=== PATIENT | male | born 1940 | race Caucasian/White ===

== ENCOUNTER 2017-03-10 19:03 | Inpatient (IN) | payer OTHER ==
[~2017-03-10] VITALS: Ht 170.2 cm; Wt 79.5 kg
[~2017-03-10 19:03] MED LIST: ASPEC81 PO; BRL90 PO; CETI10TA10 PO; IMDSR30 PO; LISI-461 PO; MAGN250T3 PO; NITR0.4S UT; OMEG10007 PO; TRMCR130WC TOP; XLTOPS OPB
[2017-03-10] MEDS ORDERED: ONDANSETRON INJ 2 MG/ML 2 ML VIAL IV STA (19:19)
[2017-03-10] MEDS ORDERED: SODIUM CHLORIDE 0.9% 1000ML 500 ML IV STA (19:19)
--- NOTE | 2017-03-10 19:27 | EMERGENCY ROOM VISIT NOTE ---
History Report prepared by Pia: Nithin Fountain Under the Supervision of: Dr. Kofi Raya M.D. First contact with patient: 19:11 Chief Complaint: ABDOMINAL PAIN Stated Complaint: MID ABDOMINAL PAIN History of Present Illness The patient is a 76 year old male who presents to the Emergency Room with complaints of constant abdominal pain that started out as waxing and waning a few hours ago. He currently rates his discomfort as an 8/10 in severity. He states that he ate some soup a couple of hours before the pain started. The patient is additionally complaining of back pain in the middle of his back, increased urinary frequency, and belching. The patient denies any pain with urination, testicular pain, nausea, vomiting, fevers, chills, or diarrhea. The patient states that he had a colon resection five years ago due to diverticulitis, and he has five stents in his heart. The patient denies any history of kidney stones or urine infections. He states that he takes Brilinta for his stents, and he states that he took tums with no relief. Source of History: patient Onset: a few hours ago Position: abdomen Symptom Intensity: 8/10 Timing: constant Associated Symptoms: + back pain, + urinary symptoms, No fevers, No chills, No nausea, No vomiting Note: Associated symptoms: belching Review of Systems See HPI for pertinent positives & negatives. A total of 10 systems reviewed and were otherwise negative. Past Medical & Surgical Medical Problems: (1) Hyperlipidemia Nec/Nos (2) Hypertension Nos Social History Smoking Status: Former Smoker Drug Use: none Housing Status: unknown Occupation Status: retired Current/Historical Medications Scheduled Aspirin Enteric Coated (Ecotrin Or Generic *), 81 MG PO QPM Atorvastatin (Lipitor), 1 TAB PO DAILY Cetirizine Hcl (Zyrtec), 10 MG PO BID Latanoprost (Latanoprost), 1 DROP OPB HS Lisinopril (Zestril), 10 MG PO QPM Magnesium (Magnesium 250 mg), 1 TAB PO QAM Nitroglycerin (Nitrostat), 0.4 MG UT PRN Ticagrelor (Brilinta), 90 MG PO BID Allergies Coded Allergies: POLLEN (Verified Allergy, Intermediate, "TREE POLLEN": ITCHY EYES, CONGESTION, 03/10/17) Physical Exam Vital Signs Date Time Temp Pulse Resp B/P (MAP) Pulse Ox O2 Delivery O2 Flow Rate FiO2 03/10/17 22:02 58 16 124/73 94 Room Air 03/10/17 19:52 61 03/10/17 19:04 36.5 62 16 152/97 96 Room Air Physical Exam GENERAL: Patient is in no acute distress. HEENT: No acute trauma, normocephalic atraumatic, mucous membranes moist, no nasal congestion, no scleral icterus. NECK: No stridor, no adenopathy, no meningismus, trachea is midline. LUNGS: Clear to auscultation bilaterally, no wheeze, no rhonchi, breath sounds equal. HEART: Without murmurs gallops or rubs, regular rate and rhythm. ABDOMEN: Tender in the left mid abdomen, soft, bowel sounds positive, no hernias , no peritonitis. EXTREMITIES: No cyanosis or edema, full range of motion of all the joints without pain or difficulty, no signs for acute trauma. NEUROLOGIC: Oriented x 3, no acute motor or sensory deficits, no focal weakness. SKIN: No rash, no jaundice, no diaphoresis. Medical Decision & Procedures ER Provider Diagnostic Interpretation: Post-void bladder scan had 120cc, mild urinary retention Radiology results as stated below per my review and radiologist interpretation: CHEST ONE VIEW PORTABLE HISTORY: 76 years-old Male ABDOMINAL PAIN/GI acute generalized abdominal pain COMPARISON: Portable chest radiograph 05/05/2015 TECHNIQUE: Portable upright AP view of the chest FINDINGS: Cardiac silhouette is within normal limits. There is atherosclerosis of the aorta. Azygos lobe and fissure is noted. There is no pneumothorax, pleural effusion, focal airspace consolidation or overt pulmonary edema. Postsurgical changes of the right humeral head are noted. Calcification adjacent to the left greater tuberosity suggests calcific tendinosis or calcific bursitis. IMPRESSION: No acute cardiopulmonary process. The above report was generated using voice recognition software. It may contain grammatical, syntax or spelling errors. Electronically signed by: Teofilo Garcia M.D. 03/10/2017 8:18 PM Dictated Date/Time: 03/10/2017 8:16 PM ABD/PELVIS IV AND ORAL CONT HISTORY: 76 years-old Male ABDOMINAL PAIN/GI--?DIVERTICULITIS--GIVE PO AND IV CONTRAST acute generalized abdominal pain. Initial exam. COMPARISON: CT abdomen and pelvis 07/04/2011. TECHNIQUE: Multiple axial CT images of the abdomen and pelvis were obtained following the intravenous administration of 92 mL Optiray 320. Oral contrast was also used. A dose lowering technique was used consistent with the principals of MAGALYS. FINDINGS: There is mild bibasilar atelectasis and/or pleural parenchymal scarring, subsegmental. No pneumoperitoneum. The imaged inferior cardiac chambers are enlarged with coronary arterial calcifications. The liver, spleen, pancreas and adrenal glands are within normal limits. Gallbladder is also unremarkable. Kidneys and ureters are within normal limits. The prostate is enlarged causing mass effect upon the floor of the urinary bladder. Mild to moderate atherosclerotic plaquing of the abdominal aorta is present. No bulky retroperitoneal adenopathy. Small sliding type hiatal hernia is noted containing oral contrast. Stomach is distended. Duodenum is normal in caliber. The majority of the contrast is still present within the stomach. Colonic diverticulosis without diverticulitis. There is evidence of prior partial sigmoid colon resection. The appendix appears normal. Mildly dilated and prominent loops of small bowel are seen within the left mid abdomen with multiple nondilated fecalized loops of small bowel also noted distal to dilation extending into the terminal ileum. Collapsed nondilated loops of ileum are noted without a focal transition point seen. No significant progression of oral contrast is seen into the dilated small bowel loops. Several loops of bowel demonstrate angular margins suggesting underlying adhesions. Mild interloop edema is present within the mesentery. No pneumatosis or pneumoperitoneum. Soft tissues are within normal limits. Bones are intact. IMPRESSION: 1. Findings suggest low-grade partial small bowel obstruction, likely secondary to underlying adhesions with transition to normal caliber fecalized loops of small bowel within the right lower quadrant. These findings could be further evaluated with small bowel follow-through. 2. No pneumoperitoneum or pneumatosis. 3. Colonic diverticulosis without diverticulitis. Prior partial sigmoid colon resection. 4. Normal appendix. The above report was generated using voice recognition software. It may contain grammatical, syntax or spelling errors. Electronically signed by: Teofilo Garcia M.D. 03/10/2017 10:23 PM Dictated Date/Time: 03/10/2017 10:11 PM Laboratory Results 03/10/17 19:34 Red Blood Count 5.21, Mean Corpuscular Volume 89.1, Mean Corpuscular Hemoglobin 32.1, Mean Corpuscular Hemoglobin Concent 36.0, Mean Platelet Volume 9.7, Neutrophils (%) (Auto) 71.1, Lymphocytes (%) (Auto) 18.0, Monocytes (%) (Auto) 9.0, Eosinophils (%) (Auto) 1.0, Basophils (%) (Auto) 0.4, Neutrophils # (Auto) 5.50, Lymphocytes # (Auto) 1.39, Monocytes # (Auto) 0.70, Eosinophils # (Auto) 0.08, Basophils # (Auto) 0.03 03/10/17 19:34 Test 03/10/17 19:34 03/10/17 20:00 White Blood Count 7.74 K/uL (4.8-10.8) Red Blood Count 5.21 M/uL (4.7-6.1) Hemoglobin 16.7 g/dL (14.0-18.0) Hematocrit 46.4 % (42-52) Mean Corpuscular Volume 89.1 fL (80-100) Mean Corpuscular Hemoglobin 32.1 pg (25-34) Mean Corpuscular Hemoglobin Concent 36.0 g/dl (32-36) Platelet Count 157 K/uL (130-400) Mean Platelet Volume 9.7 fL (7.4-10.4) Neutrophils (%) (Auto) 71.1 % Lymphocytes (%) (Auto) 18.0 % Monocytes (%) (Auto) 9.0 % Eosinophils (%) (Auto) 1.0 % Basophils (%) (Auto) 0.4 % Neutrophils # (Auto) 5.50 K/uL (1.4-6.5) Lymphocytes # (Auto) 1.39 K/uL (1.2-3.4) Monocytes # (Auto) 0.70 K/uL (0.11-0.59) Eosinophils # (Auto) 0.08 K/uL (0-0.5) Basophils # (Auto) 0.03 K/uL (0-0.2) RDW Standard Deviation 44.1 fL (36.4-46.3) RDW Coefficient of Variation 13.5 % (11.5-14.5) Immature Granulocyte % (Auto) 0.5 % Immature Granulocyte # (Auto) 0.04 K/uL (0.00-0.02) Prothrombin Time 11.3 SECONDS (9.0-12.0) Prothromb Time International Ratio 1.1 (0.9-1.1) Activated Partial Thromboplast Time 25.8 SECONDS (21.0-31.0) Partial Thromboplastin Ratio 1.0 Anion Gap 6.0 mmol/L (3-11) Est Creatinine Clear Calc Drug Dose 69.4 ml/min Estimated GFR () 92.7 Estimated GFR (Non- 80.0 BUN/Creatinine Ratio 13.0 (10-20) Lactic Acid Level 0.9 mmol/L (0.4-2.0) Calcium Level 9.1 mg/dl (8.5-10.1) Magnesium Level 2.4 mg/dl (1.8-2.4) Total Bilirubin 0.5 mg/dl (0.2-1) Aspartate Amino Transf (AST/SGOT) 30 U/L (15-37) Alanine Aminotransferase (ALT/SGPT) 39 U/L (12-78) Alkaline Phosphatase 71 U/L (45-117) Troponin I < 0.015 ng/ml (0-0.045) Total Protein 7.2 gm/dl (6.4-8.2) Albumin 4.0 gm/dl (3.4-5.0) Globulin 3.2 gm/dl (2.5-4.0) Albumin/Globulin Ratio 1.3 (0.9-2) Lipase 186 U/L (73-393) Urine Color YELLOW Urine Appearance CLEAR (CLEAR) Urine pH 7.0 (4.5-7.5) Urine Specific Post 1.016 (1.000-1.030) Urine Protein NEG (NEG) Urine Glucose (UA) NEG (NEG) Urine Ketones NEG (NEG) Urine Occult Blood NEG (NEG) Urine Nitrite NEG (NEG) Urine Bilirubin NEG (NEG) Urine Urobilinogen NEG (NEG) Urine Leukocyte Esterase NEG (NEG) Laboratory results reviewed by me. Medications Administered Medications (Trade) Dose Ordered Sig/[place] Route Start Time Stop Time Status Last Admin Dose Admin Sodium Chloride 500 ml @ 999 mls/hr Q31M STAT IV 03/10/17 19:19 03/10/17 19:49 DC 03/10/17 19:44 999 MLS/HR Ondansetron HCl (Zofran Inj) 4 mg NOW STAT IV 03/10/17 19:19 03/10/17 19:22 DC 03/10/17 19:45 4 MG Morphine Sulfate (MoRPHine SULFATE INJ) 4 mg Q30M PRN IV 03/10/17 19:30 03/24/17 19:29 03/10/17 20:44 4 MG ECG Indication: abdominal pain Rate (beats per minute): 51 Rhythm: sinus bradycardia Findings: no acute ischemic change, no ectopy ED Course 1910: The patient was evaluated in room B12. A complete history and physical exam was performed. 1918: Zofran Inj 4mg IV, Sodium Chloride 500 ml @ 999 mls/hr IV 1929: Morphine Sulfate 4mg IV 2055: I reevaluated the patient, and I updated him. The patient was doing well. 2228: I reevaluated the patient, and I updated him on the treatment plan. He was agreeable. 2241: Discussed the patient's case with iKm Russo. The patient will be evaluated for further management. Medical Decision Differential Diagnoses include: diverticulitis, UTI, renal colic, pyelonephritis , urinary retention, hernia, pancreatitis, biliary colic, pneumonia, bowel ischemia, bowel obstruction. There is no leukocytosis or concerning anemia. No significant electrolyte abnormality, kidney failure, hepatitis or pancreatitis. Lactic acid level is not elevated making bowel ischemia less likely. Urinalysis does not show infection. EKG shows a sinus rhythm, no acute ischemia. Cardiac enzyme testing times one is not consistent with acute cardiac injury. Chest x-ray does not show free air or pneumonia. There is no coagulopathy. Abdominal and pelvis CT shows a small bowel obstruction, thought likely related to adhesions. The patient did receive IV saline, he was given IV Zofran and IV morphine. He feels improved. Because of the findings of bowel obstruction, an NG tube was placed to low intermittent suction. The patient is comfortable. I spoke with him about my findings. I talked with case management. The on-call hospitalist was consulted. Admission/observation is warranted. Medication Reconcilliation Current Medication List: was personally reviewed by me Blood Pressure Screening Patient's blood pressure: Elevated blood pressure Blood pressure disposition: Elevated BP felt to be situational Consults Time Called: 2232 Consulting Physician: Kim Russo Returned Call: 2241 Discussed the patient's case with Dr. Schmidt, [facility]. The patient will be evaluated for further management. Impression Primary Impression: Small bowel obstruction Scribe Attestation The scribe's documentation has been prepared under my direction and personally reviewed by me in its entirety. I confirm that the note above accurately reflects all work, treatment, procedures, and medical decision making performed by me. Departure Information Dispostion Being Evaluated By Hospitalist Referrals Jack Montalvo D.O. (PCP) Patient Instructions My [facility]
[2017-03-10] MEDS ORDERED: OPTIRAY 320 IV PRN (19:30)
[2017-03-10] MEDS ORDERED: ATOR-26 PO (19:39)
[2017-03-10] MEDS: MoRPHine SULFATE 4 MG/ML 1 ML CARP\\VIAL IV PRN ×2 (19:45→20:44)
[2017-03-10 19:48] LABS: BASO % 0.4 %; BASO ABS # 0.03 K/uL (0-0.2); COMPLETE YES; HEMATOCRIT 46.4 % (42-52); IG% 0.5 %; LYMPH ABS # 1.39 K/uL (1.2-3.4); MEAN CELL VOLUME 89.1 fL (80-100); MEAN CORPUSCULAR HEMOGLOBIN 32.1 pg (25-34); MEAN PLATELET VOLUME 9.7 fL (7.4-10.4); NEUT % 71.1 %; PLATELET COUNT 157 K/uL (130-400); RED BLOOD COUNT 5.21 M/uL (4.7-6.1); WHITE BLOOD COUNT 7.74 K/uL (4.8-10.8)
[2017-03-10 19:57] LABS: INR 1.1 (0.9-1.1); PROTHROMBIN TIME (PATIENT) 11.3 SECONDS (9.0-12.0)
[2017-03-10 20:07] LABS: ALT/SGPT 39 U/L (12-78); BLOOD UREA NITROGEN 12 mg/dl (7-18); CALCIUM 9.1 mg/dl (8.5-10.1); CARBON DIOXIDE 29 mmol/L (21-32); CHLORIDE 104 mmol/L (98-107); CREATININE 0.93 mg/dl (0.60-1.40); GLUCOSE 99 mg/dl (70-99); MAGNESIUM 2.4 mg/dl (1.8-2.4); POTASSIUM 4.1 mmol/L (3.5-5.1); SODIUM 139 mmol/L (136-145)
[2017-03-10 20:12] LABS: ALB/GLOB RATIO 1.3 (0.9-2); ALKALINE PHOSPHATASE 71 U/L (45-117); AST/SGOT 30 U/L (15-37)
--- NOTE | 2017-03-10 20:19 | DIAGNOSTIC IMAGING REPORT ---
CHEST ONE VIEW PORTABLE HISTORY: 76 years-old Male ABDOMINAL PAIN/GI acute generalized abdominal pain COMPARISON: Portable chest radiograph 05/05/2015 TECHNIQUE: Portable upright AP view of the chest FINDINGS: Cardiac silhouette is within normal limits. There is atherosclerosis of the aorta. Azygos lobe and fissure is noted. There is no pneumothorax, pleural effusion, focal airspace consolidation or overt pulmonary edema. Postsurgical changes of the right humeral head are noted. Calcification adjacent to the left greater tuberosity suggests calcific tendinosis or calcific bursitis. IMPRESSION: No acute cardiopulmonary process. The above report was generated using voice recognition software. It may contain grammatical, syntax or spelling errors. Electronically signed by: Teofilo Garcia M.D. 03/10/2017 8:18 PM Dictated Date/Time: 03/10/2017 8:16 PM
[2017-03-10 20:26] LABS: URINE APPEARANCE CLEAR (CLEAR); URINE BILIRUBIN NEG (NEG); URINE COLOR YELLOW; URINE NITRITE NEG (NEG); URINE SPECIFIC GRAVITY 1.016 (1.000-1.030); UROBILINOGEN NEG (NEG); ZZUR CULT IF INDIC CLEAN CATCH NO
[2017-03-10 20:36] LABS: MANUAL MICROSCOPIC REQUIRED? NO; REVIEW REQ? NO
--- NOTE | 2017-03-10 22:24 | DIAGNOSTIC IMAGING REPORT ---
ABD/PELVIS IV AND ORAL CONT HISTORY: 76 years-old Male ABDOMINAL PAIN/GI--?DIVERTICULITIS--GIVE PO AND IV CONTRAST acute generalized abdominal pain. Initial exam. COMPARISON: CT abdomen and pelvis 07/04/2011. TECHNIQUE: Multiple axial CT images of the abdomen and pelvis were obtained following the intravenous administration of 92 mL Optiray 320. Oral contrast was also used. A dose lowering technique was used consistent with the principals of MAGALYS. FINDINGS: There is mild bibasilar atelectasis and/or pleural parenchymal scarring, subsegmental. No pneumoperitoneum. The imaged inferior cardiac chambers are enlarged with coronary arterial calcifications. The liver, spleen, pancreas and adrenal glands are within normal limits. Gallbladder is also unremarkable. Kidneys and ureters are within normal limits. The prostate is enlarged causing mass effect upon the floor of the urinary bladder. Mild to moderate atherosclerotic plaquing of the abdominal aorta is present. No bulky retroperitoneal adenopathy. Small sliding type hiatal hernia is noted containing oral contrast. Stomach is distended. Duodenum is normal in caliber. The majority of the contrast is still present within the stomach. Colonic diverticulosis without diverticulitis. There is evidence of prior partial sigmoid colon resection. The appendix appears normal. Mildly dilated and prominent loops of small bowel are seen within the left mid abdomen with multiple nondilated fecalized loops of small bowel also noted distal to dilation extending into the terminal ileum. Collapsed nondilated loops of ileum are noted without a focal transition point seen. No significant progression of oral contrast is seen into the dilated small bowel loops. Several loops of bowel demonstrate angular margins suggesting underlying adhesions. Mild interloop edema is present within the mesentery. No pneumatosis or pneumoperitoneum. Soft tissues are within normal limits. Bones are intact. IMPRESSION: 1. Findings suggest low-grade partial small bowel obstruction, likely secondary to underlying adhesions with transition to normal caliber fecalized loops of small bowel within the right lower quadrant. These findings could be further evaluated with small bowel follow-through. 2. No pneumoperitoneum or pneumatosis. 3. Colonic diverticulosis without diverticulitis. Prior partial sigmoid colon resection. 4. Normal appendix. The above report was generated using voice recognition software. It may contain grammatical, syntax or spelling errors. Electronically signed by: Teofilo Garcia M.D. 03/10/2017 10:23 PM Dictated Date/Time: 03/10/2017 10:11 PM
[2017-03-11] VITALS (7 sets, daily range): BP systolic 116–146; BP diastolic 66–84; PULSE 48–64; TEMP 36.4–36.9; O2SAT 96–98; Ht 170.2 cm; Wt 79.5 kg
--- NOTE | 2017-03-11 00:54 | History and Physical ---
History & Physical Date & Time of Service: Mar 11, 2017 at 00:54 Chief Complaint: Mid Abdominal Pain Primary Care Physician: Jack Montlavo D.O. History of Present Illness Source: patient, family 76-year-old male with past medical history of coronary artery disease status post stent placement currently on Brilinta and aspirin, hyperlipidemia, hypertension, status post colonic resection 5 years ago for diverticulitis present to the ER with complaints of abdominal pain which started a few hours prior to arrival. The pain is in the upper to mid abdominal area with radiation to the back, stabbing in nature, 8/10 in severity. Denies any nausea, vomiting, diarrhea or fevers and chills. Denies any chest pain or shortness of breath or palpitations. Denies any dysuria but had increased frequency starting yesterday. Past Medical/Surgical History Medical Problems: (1) Hyperlipidemia Nec/Nos Status: Chronic (2) Hypertension Nos Status: Chronic Family History Noncontributory Social History Smoking Status: Former Smoker Smokeless Tobacco Use: No Alcohol Use: none Drug Use: none Marital Status: Housing status: lives with family Occupational Status: retired Immunizations History of Influenza Vaccine: Unknown History of Tetanus Vaccine?: Unknown History of Pneumococcal: Unknown History of Hepatitis B Vaccine: Unknown Multi-Drug Resistant Organisms History of MDRO: No Allergies Coded Allergies: POLLEN (Verified Allergy, Intermediate, "TREE POLLEN": ITCHY EYES, CONGESTION, 03/10/17) Home Medications Scheduled Aspirin Enteric Coated (Ecotrin Or Generic *), 81 MG PO QPM Atorvastatin (Lipitor), 1 TAB PO DAILY Cetirizine Hcl (Zyrtec), 10 MG PO BID Latanoprost (Latanoprost), 1 DROP OPB HS Lisinopril (Zestril), 10 MG PO QPM Magnesium (Magnesium 250 mg), 1 TAB PO QAM Nitroglycerin (Nitrostat), 0.4 MG UT PRN Ticagrelor (Brilinta), 90 MG PO BID Review of Systems Constitutional: No fever, No chills Eyes: No worsening of vision ENT: No hearing loss Respiratory: No cough, No sputum, No shortness of breath Cardiovascular: No chest pain Abdomen: + pain (midabdominal area), No nausea, No vomiting, No diarrhea Musculoskeletal: No joint pain Genitourinary - Male: + urinary frequency, No hematuria Neurologic: No memory loss, No paralysis Psychiatric: No depression symptoms Endocrine: No fatigue Hematologic / Lymphatic: No abnormal bleeding/bruising Integumentary: No rash Physical Exam Vital Signs Date Time Temp Pulse Resp B/P (MAP) Pulse Ox O2 Delivery O2 Flow Rate FiO2 03/11/17 00:50 57 20 137/85 98 Room Air 03/10/17 23:00 58 20 118/86 93 Room Air 03/10/17 22:02 58 16 124/73 94 Room Air 03/10/17 19:52 61 03/10/17 19:04 36.5 62 16 152/97 96 Room Air General Appearance: WD/WN, no apparent distress Eyes: normal inspection ENT: + pertinent finding (NG tube in place) Neck: supple Respiratory/Chest: lungs clear, normal breath sounds, no respiratory distress Cardiovascular: regular rate, rhythm Abdomen/GI: non tender, + distended Extremities/Musculoskelatal: no calf tenderness, no pedal edema Neurologic/Psych: alert, normal mood/affect, oriented x 3 Skin: normal color Diagnostics Laboratory Results Results Past 24 Hours Test 03/10/17 19:34 03/10/17 20:00 Range/Units White Blood Count 7.74 4.8-10.8 K/uL Red Blood Count 5.21 4.7-6.1 M/uL Hemoglobin 16.7 14.0-18.0 g/dL Hematocrit 46.4 42-52 % Mean Corpuscular Volume 89.1 80-100 fL Mean Corpuscular Hemoglobin 32.1 25-34 pg Mean Corpuscular Hemoglobin Concent 36.0 32-36 g/dl Platelet Count 157 130-400 K/uL Mean Platelet Volume 9.7 7.4-10.4 fL Neutrophils (%) (Auto) 71.1 % Lymphocytes (%) (Auto) 18.0 % Monocytes (%) (Auto) 9.0 % Eosinophils (%) (Auto) 1.0 % Basophils (%) (Auto) 0.4 % Neutrophils # (Auto) 5.50 1.4-6.5 K/uL Lymphocytes # (Auto) 1.39 1.2-3.4 K/uL Monocytes # (Auto) 0.70 0.11-0.59 K/uL Eosinophils # (Auto) 0.08 0-0.5 K/uL Basophils # (Auto) 0.03 0-0.2 K/uL RDW Standard Deviation 44.1 36.4-46.3 fL RDW Coefficient of Variation 13.5 11.5-14.5 % Immature Granulocyte % (Auto) 0.5 % Immature Granulocyte # (Auto) 0.04 0.00-0.02 K/uL Prothrombin Time 11.3 9.0-12.0 SECONDS Prothromb Time International Ratio 1.1 0.9-1.1 Activated Partial Thromboplast Time 25.8 21.0-31.0 SECONDS Partial Thromboplastin Ratio 1.0 Sodium Level 139 136-145 mmol/L Potassium Level 4.1 3.5-5.1 mmol/L Chloride Level 104 98-107 mmol/L Carbon Dioxide Level 29 21-32 mmol/L Anion Gap 6.0 3-11 mmol/L Blood Urea Nitrogen 12 7-18 mg/dl Creatinine 0.93 0.60-1.40 mg/dl Est Creatinine Clear Calc Drug Dose 69.4 ml/min Estimated GFR () 92.7 Estimated GFR (Non- 80.0 BUN/Creatinine Ratio 13.0 10-20 Random Glucose 99 70-99 mg/dl Lactic Acid Level 0.9 0.4-2.0 mmol/L Calcium Level 9.1 8.5-10.1 mg/dl Magnesium Level 2.4 1.8-2.4 mg/dl Total Bilirubin 0.5 0.2-1 mg/dl Aspartate Amino Transf (AST/SGOT) 30 15-37 U/L Alanine Aminotransferase (ALT/SGPT) 39 12-78 U/L Alkaline Phosphatase 71 45-117 U/L Troponin I < 0.015 0-0.045 ng/ml Total Protein 7.2 6.4-8.2 gm/dl Albumin 4.0 3.4-5.0 gm/dl Globulin 3.2 2.5-4.0 gm/dl Albumin/Globulin Ratio 1.3 0.9-2 Lipase 186 73-393 U/L Urine Color YELLOW Urine Appearance CLEAR CLEAR Urine pH 7.0 4.5-7.5 Urine Specific [place] 1.016 1.000-1.030 Urine Protein NEG NEG Urine Glucose (UA) NEG NEG Urine Ketones NEG NEG Urine Occult Blood NEG NEG Urine Nitrite NEG NEG Urine Bilirubin NEG NEG Urine Urobilinogen NEG NEG Urine Leukocyte Esterase NEG NEG Diagnostic Radiology ABD/PELVIS IV AND ORAL CONT HISTORY: 76 years-old Male ABDOMINAL PAIN/GI--?DIVERTICULITIS--GIVE PO AND IV CONTRAST acute generalized abdominal pain. Initial exam. COMPARISON: CT abdomen and pelvis 07/04/2011. TECHNIQUE: Multiple axial CT images of the abdomen and pelvis were obtained following the intravenous administration of 92 mL Optiray 320. Oral contrast was also used. A dose lowering technique was used consistent with the principals of MAGALYS. FINDINGS: There is mild bibasilar atelectasis and/or pleural parenchymal scarring, subsegmental. No pneumoperitoneum. The imaged inferior cardiac chambers are enlarged with coronary arterial calcifications. The liver, spleen, pancreas and adrenal glands are within normal limits. Gallbladder is also unremarkable. Kidneys and ureters are within normal limits. The prostate is enlarged causing mass effect upon the floor of the urinary bladder. Mild to moderate atherosclerotic plaquing of the abdominal aorta is present. No bulky retroperitoneal adenopathy. Small sliding type hiatal hernia is noted containing oral contrast. Stomach is distended. Duodenum is normal in caliber. The majority of the contrast is still present within the stomach. Colonic diverticulosis without diverticulitis. There is evidence of prior partial sigmoid colon resection. The appendix appears normal. Mildly dilated and prominent loops of small bowel are seen within the left mid abdomen with multiple nondilated fecalized loops of small bowel also noted distal to dilation extending into the terminal ileum. Collapsed nondilated loops of ileum are noted without a focal transition point seen. No significant progression of oral contrast is seen into the dilated small bowel loops. Several loops of bowel demonstrate angular margins suggesting underlying adhesions. Mild interloop edema is present within the mesentery. No pneumatosis or pneumoperitoneum. Soft tissues are within normal limits. Bones are intact. IMPRESSION: 1. Findings suggest low-grade partial small bowel obstruction, likely secondary to underlying adhesions with transition to normal caliber fecalized loops of small bowel within the right lower quadrant. These findings could be further evaluated with small bowel follow-through. 2. No pneumoperitoneum or pneumatosis. 3. Colonic diverticulosis without diverticulitis. Prior partial sigmoid colon resection. 4. Normal appendix. [~ rep ct add3]] CHEST ONE VIEW PORTABLE HISTORY: 76 years-old Male ABDOMINAL PAIN/GI acute generalized abdominal pain COMPARISON: Portable chest radiograph 05/05/2015 TECHNIQUE: Portable upright AP view of the chest FINDINGS: Cardiac silhouette is within normal limits. There is atherosclerosis of the aorta. Azygos lobe and fissure is noted. There is no pneumothorax, pleural effusion, focal airspace consolidation or overt pulmonary edema. Postsurgical changes of the right humeral head are noted. Calcification adjacent to the left greater tuberosity suggests calcific tendinosis or calcific bursitis. IMPRESSION: No acute cardiopulmonary process. Impression Assessment and Plan 76-year-old male with past medical history of coronary artery disease status post stent placement currently on Brilinta and aspirin, hyperlipidemia, hypertension, status post colonic resection 5 years ago for diverticulitis presented to the ER with complaints of abdominal pain which started a few hours prior to arrival. Small bowel obstruction: - CT abdomen and pelvis revealed a low-grade partial small bowel obstruction likely secondary to underlying adhesions - NG tube to low intermittent suction - Nothing by mouth - GEN surgery consult Coronary artery disease status post stent placement/ hyperlipidemia - Currently on aspirin and Brilinta( discuss with cardiology about holding Brilinta considering nothing by mouth status) - Continue Zocor Hypertension: - Continue Zestril DVT prophylaxis SCDs DO NOT RESUSCITATE Disposition: Admitted to [facility] Attending Addendum: I have physically seen and examined this patient, have directed the resident's medical activities, and agree with the H&P as noted above with the following exceptions as noted. The patient is awake, alert and oriented 3, well-developed and well-nourished , normocephalic and atraumatic, lying in bed and in no acute distress. HEENT--PERRL, EOMI, mucous membranes and oropharynx dry. NG tube in place Neck--supple, no JVD or bruits, thyroid normal, trachea midline, no adenopathy. Heart--normal S1 and S2, no extra beats, no murmurs, rubs or gallops. Lungs--clear bilaterally with good air movement, no respiratory distress, no accessory muscle use. Abdomen--decreased bowel sounds, soft, generalized tenderness. nondistended, no hernias or masses, no organomegaly. Extremities--no cyanosis, clubbing or edema. There are good distal pulses b/l. Dermatologic--normal skin turgor, normal color, warm and dry, no abnormal lymph nodes, no rash. Neurologic--cranial nerves II through XII grossly intact. Rheumatologic--normal range of motion, nontender, muscles and joints. Psychiatric--normal affect. Assessment and Plan: Low-grade partial small bowel obstruction secondary to underlying adhesions with transition right lower quadrant-- Admit to the medical surgical floor. Nothing by mouth except ice chips. NG tube to low intermittent suction. Zosyn 3.375 mg IV every 8 hours due to stasis and interloop edema. Consult general surgery. CAD/history of multiple stents/hypertension-- Hold aspirin and Brilinta in the event of a procedure needing to be done. Hold all oral meds. Level of Care Med/Surg Advanced Directives Existing Advance Directive: No Existing Living Will: Yes Existing Power of Track Service Worker: No Resuscitation Status DO NOT RESUSCITATE VTE Prophylaxis VTE Risk Assessment Done? Y/N: Yes Risk Level: High Given or contraindicated: SCD's Social Service Consult None Apply Resident Tracking Resident Involvement: Resident Care Provided Care Provided: Adult Hospital Medicine
[2017-03-11] MEDS ORDERED: POLYETHYLENE (MIRALAX) 17 GM PACK PO PRN (01:00)
[2017-03-11] MEDS ORDERED: ACETAMINOPHEN 325 MG TAB PO PRN (01:00)
[2017-03-11] MEDS ORDERED: ONDANSETRON INJ 2 MG/ML 2 ML VIAL IV PRN (01:00)
[2017-03-11] MEDS ORDERED: SODIUM CHLORIDE 0.9% 1000ML 1,000 ML IV SCH (02:30)
[2017-03-11 05:54] LABS: HEMATOCRIT 44.1 % (42-52); MEAN CELL VOLUME 89.6 fL (80-100); MEAN CORPUSCULAR HEMOGLOBIN 31.3 pg (25-34); MEAN CORPUSCULAR HGB CONC 34.9 g/dl (32-36); MEAN PLATELET VOLUME 9.7 fL (7.4-10.4); PLATELET COUNT 138 K/uL (130-400); RED BLOOD COUNT 4.92 M/uL (4.7-6.1); WHITE BLOOD COUNT 7.92 K/uL (4.8-10.8)
[2017-03-11 06:29] LABS: CALCIUM 8.2 mg/dl (8.5-10.1); CREATININE 0.72 mg/dl (0.60-1.40)
[2017-03-11 06:31] LABS: ALB/GLOB RATIO 1.2 (0.9-2)
[2017-03-11] MEDS ORDERED: NURSING VERBAL MED ORDER ONE ×2 (08:00→13:15)
[2017-03-11] MEDS ORDERED: MoRPHine SULFATE 4 MG/ML 1 ML CARP\\VIAL IV PRN (08:30)
--- NOTE | 2017-03-11 08:43 | Surgery Consultation ---
Consultation Date of Consultation: Mar 11, 2017. Attending Physician: Justin Ennis M.D. Reason for Consultation: Small Bowel Obstruction History of Present Illness Small Bowel Obstruction Consult 76-year-old male with past medical history significant for diverticulitis s/p colon resection in [place], coronary artery disease s/p stent placement presented to ED due to left-sided abdominal pain X 3 hours. Patient states that he was at a wedding this past weekend with events on Friday, Friday, and Friday- states that he "ate a little too much." He reports that he ate beckman soup a few hours before the abdominal pain started. NG tube was placed on admission. He currently denies abdominal pain. Denies nausea or vomiting. Last bowel movement was yesterday AM. +Flatus Last colonoscopy was in 2010. Patient was previously seen by Dr. Brannon in 2010 for diverticulitis. Past Medical/Surgical History Medical Problems: (1) Small bowel obstruction Status: Acute (2) Hyperlipidemia (3) Hypertension Surgical History (1) Colon resection ([place]) Social History Smoking Status: Never Smoker Drug Use: none Housing Status: unknown Occupation Status: retired Allergies Coded Allergies: POLLEN (Verified Allergy, Intermediate, "TREE POLLEN": ITCHY EYES, CONGESTION, 03/10/17) Home Medications Scheduled Aspirin Enteric Coated (Ecotrin Or Generic *), 81 MG PO QPM Atorvastatin (Lipitor), 1 TAB PO DAILY Cetirizine Hcl (Zyrtec), 10 MG PO BID Latanoprost (Latanoprost), 1 DROP OPB HS Lisinopril (Zestril), 10 MG PO QPM Magnesium (Magnesium 250 mg), 1 TAB PO QAM Nitroglycerin (Nitrostat), 0.4 MG UT PRN Ticagrelor (Brilinta), 90 MG PO BID Current Inpatient Medications Current Inpatient Medications Medications (Trade) Dose Ordered Sig/[place] Route Start Time Stop Time Status Last Admin Dose Admin Ioversol (Optiray 320) 100 ml UD PRN IV 03/10/17 19:30 03/14/17 19:29 Acetaminophen (Tylenol Tab) 650 mg Q4H PRN PO 03/11/17 01:00 04/10/17 00:59 Polyethylene (Miralax Powder Packet) 17 gm DAILY PRN PO 03/11/17 01:00 04/10/17 00:59 Ondansetron HCl (Zofran Inj) 4 mg Q6H PRN IV 03/11/17 01:00 04/10/17 00:59 Aspirin (Ecotrin Tab) 81 mg QPM PO 03/11/17 21:00 04/10/17 20:59 Atorvastatin Calcium (Lipitor Tab) 80 mg DAILY PO 03/11/17 09:00 04/10/17 08:59 Cetirizine HCl (zyrTEC TAB) 10 mg BID PO 03/11/17 09:00 04/10/17 08:59 Latanoprost (Xalatan Oph Soln) 1 drops HS OPB 03/11/17 21:00 04/10/17 20:59 Lisinopril (Zestril Tab) 10 mg QPM PO 03/11/17 21:00 04/10/17 20:59 Ticagrelor (Brilinta Cap) 90 mg BID PO 03/11/17 09:00 04/10/17 08:59 Magnesium Oxide (Mag-Ox Tab) 400 mg QAM PO 03/11/17 09:00 04/10/17 08:59 Sodium Chloride 1,000 ml @ 100 mls/hr Q10H IV 03/11/17 02:30 04/10/17 02:29 03/11/17 02:48 100 MLS/HR Miscellaneous Information (Nursing Verbal Med Order) 1 ea ONE ONCE N/A 03/11/17 08:00 03/11/17 08:01 UNV Review of Systems Constitutional: No fever, No chills Abdomen: No pain, No nausea, No vomiting Physical Exam Date Time Temp Pulse Resp B/P (MAP) Pulse Ox O2 Delivery O2 Flow Rate FiO2 03/11/17 07:20 36.6 48 18 146/83 (104) 97 Room Air 03/11/17 01:25 Room Air 03/11/17 01:25 36.4 59 20 132/81 Room Air 03/11/17 00:50 57 20 137/85 98 Room Air 03/10/17 23:00 58 20 118/86 93 Room Air 03/10/17 22:02 58 16 124/73 94 Room Air 03/10/17 19:52 61 03/10/17 19:04 36.5 62 16 152/97 96 Room Air General Appearance: WD/WN, no apparent distress Head: normocephalic, atraumatic Respiratory/Chest: no accessory muscle use Abdomen/GI: non tender, soft Laboratory Results Last 24 Hours Test 03/10/17 19:34 03/10/17 20:00 03/11/17 05:39 White Blood Count 7.74 K/uL 7.92 K/uL Red Blood Count 5.21 M/uL 4.92 M/uL Hemoglobin 16.7 g/dL 15.4 g/dL Hematocrit 46.4 % 44.1 % Mean Corpuscular Volume 89.1 fL 89.6 fL Mean Corpuscular Hemoglobin 32.1 pg 31.3 pg Mean Corpuscular Hemoglobin Concent 36.0 g/dl 34.9 g/dl Platelet Count 157 K/uL 138 K/uL Mean Platelet Volume 9.7 fL 9.7 fL Neutrophils (%) (Auto) 71.1 % Lymphocytes (%) (Auto) 18.0 % Monocytes (%) (Auto) 9.0 % Eosinophils (%) (Auto) 1.0 % Basophils (%) (Auto) 0.4 % Neutrophils # (Auto) 5.50 K/uL Lymphocytes # (Auto) 1.39 K/uL Monocytes # (Auto) 0.70 K/uL Eosinophils # (Auto) 0.08 K/uL Basophils # (Auto) 0.03 K/uL RDW Standard Deviation 44.1 fL 44.8 fL RDW Coefficient of Variation 13.5 % 13.8 % Immature Granulocyte % (Auto) 0.5 % Immature Granulocyte # (Auto) 0.04 K/uL Prothrombin Time 11.3 SECONDS Prothromb Time International Ratio 1.1 Activated Partial Thromboplast Time 25.8 SECONDS Partial Thromboplastin Ratio 1.0 Sodium Level 139 mmol/L 139 mmol/L Potassium Level 4.1 mmol/L 4.0 mmol/L Chloride Level 104 mmol/L 107 mmol/L Carbon Dioxide Level 29 mmol/L 28 mmol/L Anion Gap 6.0 mmol/L 4.0 mmol/L Blood Urea Nitrogen 12 mg/dl 9 mg/dl Creatinine 0.93 mg/dl 0.72 mg/dl Est Creatinine Clear Calc Drug Dose 69.4 ml/min 89.6 ml/min Estimated GFR () 92.7 105.8 Estimated GFR (Non- 80.0 91.3 BUN/Creatinine Ratio 13.0 13.0 Random Glucose 99 mg/dl 115 mg/dl Lactic Acid Level 0.9 mmol/L Calcium Level 9.1 mg/dl 8.2 mg/dl Magnesium Level 2.4 mg/dl Total Bilirubin 0.5 mg/dl 0.7 mg/dl Aspartate Amino Transf (AST/SGOT) 30 U/L 21 U/L Alanine Aminotransferase (ALT/SGPT) 39 U/L 35 U/L Alkaline Phosphatase 71 U/L 65 U/L Troponin I < 0.015 ng/ml Total Protein 7.2 gm/dl 6.2 gm/dl Albumin 4.0 gm/dl 3.4 gm/dl Globulin 3.2 gm/dl 2.8 gm/dl Albumin/Globulin Ratio 1.3 1.2 Lipase 186 U/L Urine Color YELLOW Urine Appearance CLEAR Urine pH 7.0 Urine Specific [place] 1.016 Urine Protein NEG Urine Glucose (UA) NEG Urine Ketones NEG Urine Occult Blood NEG Urine Nitrite NEG Urine Bilirubin NEG Urine Urobilinogen NEG Urine Leukocyte Esterase NEG Assessment & Plan Imaging reviewed. Patient passing gas, denies nausea, denies abdominal pain. NG Tube output overnight 70mL NG tube removed. Patient's diet- NPO except ice chips and sips. If patient continues to do well , no nausea or vomiting, can advance diet to clear liquids at lunch time.
[2017-03-11] MEDS: TICAGRELOR 90 MG TAB PO SCH ×2 (08:46→21:19)
[2017-03-11] MEDS: MAGNESIUM OXIDE 400 MG TAB PO SCH (08:46)
[2017-03-11] MEDS: CETIRIZINE HCL 10 MG TAB PO SCH ×2 (08:47→21:00)
[2017-03-11] MEDS ORDERED: ATORVASTATIN 40 MG TAB PO SCH (09:00)
--- NOTE | 2017-03-11 10:54 | Hospitalist Progress Note ---
Hospitalist Progress Note Date of Service Mar 11, 2017. (Barbara Hernandez PA-C) Subjective Pt evaluation today including: conversation w/ patient, conversation w/ family , physical exam, chart review, lab review, review of studies Pain: None PO Intake: NPO Voiding: no voiding problems The patient was seen and examined this morning. Pt reports doing well currently. He has had no abdominal pain, nausea, vomiting, and is passing gas. He reports that his stomach did not feel too bloated or distended yesterday, but today does seem to be better. He is hopeful to try to eat something soon. Pt is requesting to get up and walk about the kelly. An NGT was placed overnight but had minimal outs ~70cc and worsening nasal discomfort, It was removed this am by general surgery. Constitutional: No fever, No chills, No sweats Eyes: No redness, No diplopia ENT: + see HPI, + trouble swallowing Respiratory: No cough, No shortness of breath Cardiovascular: No chest pain, No palpitations Abdomen: No pain, No nausea Musculoskeletal: No joint pain, No muscle pain, No swelling Male : No dysuria Neurologic: No weakness, No numbness/tingling Endo: No fatigue Skin: No rash, No itch (Barbara Hernandez PA-C) Objective Vital Signs Date Time Temp Pulse Resp B/P (MAP) Pulse Ox O2 Delivery O2 Flow Rate FiO2 03/11/17 07:20 36.6 48 18 146/83 (104) 97 Room Air 03/11/17 01:25 Room Air 03/11/17 01:25 36.4 59 20 132/81 Room Air 03/11/17 00:50 57 20 137/85 98 Room Air 03/10/17 23:00 58 20 118/86 93 Room Air 03/10/17 22:02 58 16 124/73 94 Room Air 03/10/17 19:52 61 03/10/17 19:04 36.5 62 16 152/97 96 Room Air (Barbara Hernandez PA-C) Physical Exam General Appearance: WD/WN, no apparent distress, + pertinent finding (healthy, fit appearing, looks younger than stated age) Eyes: PERRL, EOMI ENT: hearing grossly normal, pharynx normal Neck: supple, no JVD Respiratory/Chest: lungs clear, no respiratory distress, no accessory muscle use Cardiovascular: regular rate, rhythm, no JVD, no murmur Abdomen: non tender, soft, + pertinent finding (+hypoactive bowel sounds but present in all quadrants, nondistended) Extremities: non-tender, no pedal edema, + pertinent finding (RLE with anterior tibial abraision, +ecchymosis extending down the leg and darker in colar on the medial aspect of foot, surrounding ankle.) Neurologic/Psychiatric: alert, normal mood/affect, oriented x 3 Skin: normal color, warm/dry (Barbara Hernandez, ZOLTAN) Laboratory Results Last 24 Hours Test 03/10/17 19:34 03/10/17 20:00 03/11/17 05:39 White Blood Count 7.74 K/uL 7.92 K/uL Red Blood Count 5.21 M/uL 4.92 M/uL Hemoglobin 16.7 g/dL 15.4 g/dL Hematocrit 46.4 % 44.1 % Mean Corpuscular Volume 89.1 fL 89.6 fL Mean Corpuscular Hemoglobin 32.1 pg 31.3 pg Mean Corpuscular Hemoglobin Concent 36.0 g/dl 34.9 g/dl Platelet Count 157 K/uL 138 K/uL Mean Platelet Volume 9.7 fL 9.7 fL Neutrophils (%) (Auto) 71.1 % Lymphocytes (%) (Auto) 18.0 % Monocytes (%) (Auto) 9.0 % Eosinophils (%) (Auto) 1.0 % Basophils (%) (Auto) 0.4 % Neutrophils # (Auto) 5.50 K/uL Lymphocytes # (Auto) 1.39 K/uL Monocytes # (Auto) 0.70 K/uL Eosinophils # (Auto) 0.08 K/uL Basophils # (Auto) 0.03 K/uL RDW Standard Deviation 44.1 fL 44.8 fL RDW Coefficient of Variation 13.5 % 13.8 % Immature Granulocyte % (Auto) 0.5 % Immature Granulocyte # (Auto) 0.04 K/uL Prothrombin Time 11.3 SECONDS Prothromb Time International Ratio 1.1 Activated Partial Thromboplast Time 25.8 SECONDS Partial Thromboplastin Ratio 1.0 Sodium Level 139 mmol/L 139 mmol/L Potassium Level 4.1 mmol/L 4.0 mmol/L Chloride Level 104 mmol/L 107 mmol/L Carbon Dioxide Level 29 mmol/L 28 mmol/L Anion Gap 6.0 mmol/L 4.0 mmol/L Blood Urea Nitrogen 12 mg/dl 9 mg/dl Creatinine 0.93 mg/dl 0.72 mg/dl Est Creatinine Clear Calc Drug Dose 69.4 ml/min 89.6 ml/min Estimated GFR () 92.7 105.8 Estimated GFR (Non- 80.0 91.3 BUN/Creatinine Ratio 13.0 13.0 Random Glucose 99 mg/dl 115 mg/dl Lactic Acid Level 0.9 mmol/L Calcium Level 9.1 mg/dl 8.2 mg/dl Magnesium Level 2.4 mg/dl Total Bilirubin 0.5 mg/dl 0.7 mg/dl Aspartate Amino Transf (AST/SGOT) 30 U/L 21 U/L Alanine Aminotransferase (ALT/SGPT) 39 U/L 35 U/L Alkaline Phosphatase 71 U/L 65 U/L Troponin I < 0.015 ng/ml Total Protein 7.2 gm/dl 6.2 gm/dl Albumin 4.0 gm/dl 3.4 gm/dl Globulin 3.2 gm/dl 2.8 gm/dl Albumin/Globulin Ratio 1.3 1.2 Lipase 186 U/L Urine Color YELLOW Urine Appearance CLEAR Urine pH 7.0 Urine Specific [place] 1.016 Urine Protein NEG Urine Glucose (UA) NEG Urine Ketones NEG Urine Occult Blood NEG Urine Nitrite NEG Urine Bilirubin NEG Urine Urobilinogen NEG Urine Leukocyte Esterase NEG (Barbara Hernandez PA-C) Assessment and Plan 76 yo M with PMHx of CAD s/p triple stent placement currently on Brilinta and aspirin, hyperlipidemia, hypertension, status post colonic resection 5 years ago for diverticulitis presented to the ER with complaints of abdominal pain which started a few hours prior to arrival. Partial Small bowel obstruction: - Etiology from adhesions s/p partial colon resection for diverticulitis - Pt looks comfortable, has no abdominal c/o. He is asking to trial food for lunch. Gen Surg agreed for clears with lunch- pt tolerated this well. Spoke with Dr. Lal this afternoon and he is ok with trial of full liquids for dinner. - NG tube to LIS placed at time of admission and has since been removed with low yield outs= 70mL. - Plan to repeat KUB tomorrow morning - Supportive care, maintenance fluids with NSS at 100mL/hr off now as tolerating diet CAD with triple vessel disease s/p BRUCE placement Hyperlipidemia - Initially Mar 2015 had worsening angina- Apr 2015 had 2 BRUCE to mid and distal RCA at [facility]. Had in-stent restenosis in mid and proximal RCA in Jul 2015. In January 2016 had 5th sent placed in the mid RCA, at this time he also had noted moderate-severe disease in the LAD and ramus. - Follows with Dr. Blum as an outpatient and has f/u next month. - Lesion on RLE from hitting his leg against a step. Pt did not fall - not at risk for falling. He typically exercises 3-4x per week at least with treadmill , eliptical, and weight machines. - Cont aspirin 81 mg and Brilinta 90 mg BID - Continue lipitor 80 mg QHS Hypertension: - Continue lisinopril 10 mg QPM DVT prophylaxis: SCDs CODE STATUS: DO NOT RESUSCITATE Disposition: from home, discharge likely within 24 hours. (Barbara Hernandez, PAAdriana) Attending Attestation: Pt seen/examined, chart reviewed, care plan d/w RADHA Hernandez. I agree w/ the chowdhury components of her documentation. Patient feels better. NG tube d/c. +flatus. Less abd distension/bloating. Tolerating clears w/o nausea or emesis. VSS no fever gen - nad abd - soft, minimally distended, BS+, NT, no HSM A/P: pSBO - resolving. diet advancement per gen surg. ambulate. Lokesh MILLER MD (Dawood Miller MD)
--- NOTE | 2017-03-11 15:02 | Discharge Instructions ---
Discharge Instructions Date of Service Mar 11, 2017. Admission Reason for Admission: SBO Discharge Discharge Diagnosis / Problem: Partial SBO Discharge Goals Goal(s): Decrease discomfort, Improve function, Increase independence, Improve disease control Activity Recommendations Activity Limitations: resume your previous activity Lifting Limitations: gradually increase as tolerated Exercise/Sports Limitations: rest today, gradually increase as tolerated May Resume Sexual Activity: when tolerated Shower/Bathe: no limitations Driving or Machine Use: no limitations . Instructions / Follow-Up Instructions / Follow-Up You were admitted to [facility] with abdominal pain and diagnosed with partial small bowel obstruction. During your stay here you were treated initially with a nasogastric tube for decompression. This was removed and you were then treated conservatively and slowly advanced your diet as you tolerated it. Imaging studies which were completed include CT abdomen/pelvis, and were abnormal showing partial small bowel obstruction, diverticulosis without acute diverticulitis, partial colectomy and likely adhesions. A repeat KUB was obtained and showed improvement. Medications: Continue taking your medications as prescribed. Appointments: Follow up with your Primary Care Provider within 1 week. Current Hospital Diet Patient's current hospital diet: Full Liquid Diet Discharge Diet Recommended Diet: Regular Diet Pending Studies Studies pending at discharge: no Medical Emergencies . Who to Call and When: Medical Emergencies: If at any time you feel your situation is an emergency, please call 911 immediately. . Non-Emergent Contact Non-Emergency issues call your: Primary Care Provider, Store Receiving Specialist Call Non-Emergent contact if: you have a fever, your pain is not controlled, your pain is worsening, wound has increased drainage, wound has increased redness, wound has increased pain, you have any medication questions other concerns with your health. Call 911 or go directly to the Emergency Department if you experience any of the following: Chest pain, chest tightness, shortness of breath, abdominal pain , lightheadedness, dizziness, gastrointestinal bleeding, or have any other concerns regarding your health. . Past History Medical & Surgical History: (1) Small bowel obstruction (2) Hyperlipidemia Nec/Nos (3) Hypertension Nos . "Provider Documentation" section prepared by Erika Hernandez. . VTE Core Measure Inpt VTE Proph given/why not?: [place], SCD's
[2017-03-11] MEDS ORDERED: LATANOPROST 0.005% OP SOLN 2.5 ML BTL OPB SCH (21:00)
[2017-03-11] MEDS ORDERED: LISINOPRIL 10 MG TAB PO SCH (21:00)
[2017-03-11] MEDS ORDERED: ASPIRIN 81 MG ECTAB PO SCH (21:00)
[2017-03-12 07:14] VITALS: BP 136/82; PULSE 47; TEMP 36.6; O2SAT 96
--- NOTE | 2017-03-12 07:24 | Surgery Progress Note ---
Surgery Progress Note Date of Service Mar 12, 2017. Subjective + feeling well, + flatus, + diet (clears), No bowel movement, No nausea Objective Vital Signs: Date Time Temp Pulse Resp B/P (MAP) Pulse Ox O2 Delivery O2 Flow Rate FiO2 03/12/17 07:14 36.6 47 17 136/82 (100) 96 Room Air 03/11/17 23:50 Room Air 03/11/17 22:47 36.9 52 16 116/66 (83) 97 Room Air 03/11/17 16:35 Room Air 03/11/17 15:42 36.7 54 18 143/84 (103) 96 Room Air 03/11/17 13:54 64 18 137/73 (94) 03/11/17 13:07 52 18 136/76 (96) 03/11/17 07:45 Room Air Abdomen: non tender, non distended, soft Laboratory Results: Results Past 24 Hours Test 03/12/17 06:31 Range/Units Assessment & Plan PSBO, resolving advancing diet ok for discharge if tolerates diet
[2017-03-12 07:29] LABS: HEMATOCRIT 47.4 % (42-52); MEAN CELL VOLUME 91.7 fL (80-100); MEAN CORPUSCULAR HEMOGLOBIN 31.7 pg (25-34); MEAN CORPUSCULAR HGB CONC 34.6 g/dl (32-36); MEAN PLATELET VOLUME 9.9 fL (7.4-10.4); PLATELET COUNT 153 K/uL (130-400); RED BLOOD COUNT 5.17 M/uL (4.7-6.1)
[2017-03-12] MEDS: CETIRIZINE HCL 10 MG TAB PO SCH (07:33)
[2017-03-12 07:50] LABS: BUN/CREATININE RATIO 11.3 (10-20); CALCIUM 8.9 mg/dl (8.5-10.1); CREATININE 0.77 mg/dl (0.60-1.40)
[2017-03-12 07:52] LABS: ALB/GLOB RATIO 1.1 (0.9-2)
[2017-03-12] MEDS: MAGNESIUM OXIDE 400 MG TAB PO SCH (08:31)
[2017-03-12] MEDS: TICAGRELOR 90 MG TAB PO SCH (08:31)
--- NOTE | 2017-03-12 09:33 | DIAGNOSTIC IMAGING REPORT ---
KUB HISTORY: Small bowel obstruction. COMPARISON: Abdomen and pelvis CT 03/10/2017. FINDINGS: Contrast within the small bowel on the prior study has passed into the colon. No dilated loops of small bowel identified. No renal calculi. No ureteral calculi. No pneumoperitoneum or pneumatosis. IMPRESSION: Contrast within the small bowel on the prior study has passed into the colon. Therefore, this could represent resolution of the small bowel obstruction or a partial small bowel obstruction. No dilated loops of small bowel identified. Electronically signed by: Robert Vaughn M.D. 03/12/2017 9:32 AM Dictated Date/Time: 03/12/2017 9:30 AM
--- NOTE | 2017-03-12 11:32 | Discharge Summary ---
Discharge Summary Date of Service Mar 12, 2017. (Barbara Hernandez PA-C) Discharge Summary Admission Date: Mar 11, 2017 at 00:51 Discharge Date: Mar 12, 2017 Principal Diagnosis: Partial Small bowel obstruction Problems/Secondary Diagnoses: CAD 3 vessel disease, s/p 5 BRUCE to RCA HTN HLD Hx diverticulitis s/p partial colon resection Diverticulosis Immunizations: Have You Had Influenza Vaccine: Unknown History of Tetanus Vaccine?: Unknown History of Pneumococcal: Unknown History of Hepatitis B Vaccine: Unknown Procedures: CHEST ONE VIEW PORTABLE HISTORY: 76 years-old Male ABDOMINAL PAIN/GI acute generalized abdominal pain COMPARISON: Portable chest radiograph 05/05/2015 TECHNIQUE: Portable upright AP view of the chest FINDINGS: Cardiac silhouette is within normal limits. There is atherosclerosis of the aorta. Azygos lobe and fissure is noted. There is no pneumothorax, pleural effusion, focal airspace consolidation or overt pulmonary edema. Postsurgical changes of the right humeral head are noted. Calcification adjacent to the left greater tuberosity suggests calcific tendinosis or calcific bursitis. IMPRESSION: No acute cardiopulmonary process. The above report was generated using voice recognition software. It may contain grammatical, syntax or spelling errors. Electronically signed by: Teofilo Garcia M.D. 03/10/2017 8:18 PM Dictated Date/Time: 03/10/2017 8:16 PM The status of this report is Signed. ABD/PELVIS IV AND ORAL CONT HISTORY: 76 years-old Male ABDOMINAL PAIN/GI--?DIVERTICULITIS--GIVE PO AND IV CONTRAST acute generalized abdominal pain. Initial exam. COMPARISON: CT abdomen and pelvis 07/04/2011. TECHNIQUE: Multiple axial CT images of the abdomen and pelvis were obtained following the intravenous administration of 92 mL Optiray 320. Oral contrast was also used. A dose lowering technique was used consistent with the principals of MAGALYS. FINDINGS: There is mild bibasilar atelectasis and/or pleural parenchymal scarring, subsegmental. No pneumoperitoneum. The imaged inferior cardiac chambers are enlarged with coronary arterial calcifications. The liver, spleen, pancreas and adrenal glands are within normal limits. Gallbladder is also unremarkable. Kidneys and ureters are within normal limits. The prostate is enlarged causing mass effect upon the floor of the urinary bladder. Mild to moderate atherosclerotic plaquing of the abdominal aorta is present. No bulky retroperitoneal adenopathy. Small sliding type hiatal hernia is noted containing oral contrast. Stomach is distended. Duodenum is normal in caliber. The majority of the contrast is still present within the stomach. Colonic diverticulosis without diverticulitis. There is evidence of prior partial sigmoid colon resection. The appendix appears normal. Mildly dilated and prominent loops of small bowel are seen within the left mid abdomen with multiple nondilated fecalized loops of small bowel also noted distal to dilation extending into the terminal ileum. Collapsed nondilated loops of ileum are noted without a focal transition point seen. No significant progression of oral contrast is seen into the dilated small bowel loops. Several loops of bowel demonstrate angular margins suggesting underlying adhesions. Mild interloop edema is present within the mesentery. No pneumatosis or pneumoperitoneum. Soft tissues are within normal limits. Bones are intact. IMPRESSION: 1. Findings suggest low-grade partial small bowel obstruction, likely secondary to underlying adhesions with transition to normal caliber fecalized loops of small bowel within the right lower quadrant. These findings could be further evaluated with small bowel follow-through. 2. No pneumoperitoneum or pneumatosis. 3. Colonic diverticulosis without diverticulitis. Prior partial sigmoid colon resection. 4. Normal appendix. The above report was generated using voice recognition software. It may contain grammatical, syntax or spelling errors. Electronically signed by: Teofilo Garcia M.D. 03/10/2017 10:23 PM Dictated Date/Time: 03/10/2017 10:11 PM The status of this report is Signed. KUB HISTORY: Small bowel obstruction. COMPARISON: Abdomen and pelvis CT 03/10/2017. FINDINGS: Contrast within the small bowel on the prior study has passed into the colon. No dilated loops of small bowel identified. No renal calculi. No ureteral calculi. No pneumoperitoneum or pneumatosis. IMPRESSION: Contrast within the small bowel on the prior study has passed into the colon. Therefore, this could represent resolution of the small bowel obstruction or a partial small bowel obstruction. No dilated loops of small bowel identified. Electronically signed by: Robert Vaughn M.D. 03/12/2017 9:32 AM Dictated Date/Time: 03/12/2017 9:30 AM The status of this report is Signed. Consultations: General Surgery (Barbara Hernandez, ZOLTAN) Medication Reconciliation Continued Medications: Aspirin Enteric Coated (Ecotrin Or Generic *) 81 Mg Ectab 81 MG PO QPM, 0 Refills Atorvastatin (Lipitor) 80 Mg Tab 1 TAB PO DAILY for 30 Days, #30 TAB 5 Refills Cetirizine Hcl (Zyrtec) 10 Mg Tab 10 MG PO BID, TAB Latanoprost (Latanoprost) 37 Drops/2.5 Ml Soln 1 DROP OPB HS, #2 Lisinopril (Zestril) 10 Mg Tab 10 MG PO QPM, 0 Refills Magnesium (Magnesium 250 mg) 1 Tab Tab 1 TAB PO QAM Nitroglycerin (Nitrostat) 0.4 Mg Sub 0.4 MG UT PRN, BTL Ticagrelor (Brilinta) 90 Mg Tab 90 MG PO BID, #60 TAB Discharge Exam The patient was seen and examined this morning. Pt reports doing well today. He has tolerated full liquids without any issues. He has had a bowel movement this morning, passing gas. He wants to eat regular food if allowed. Pts is at bedside and all their questions and concerns were addressed. Review of Systems: Constitutional: No fever, No chills, No sweats Eyes: No redness, No discharge ENT: No nasal symptoms, No sore throat Respiratory: No cough, No shortness of breath, No dyspnea on exertion Cardiovascular: No chest pain, No edema Abdomen: No pain, No nausea, No vomiting, No diarrhea, No constipation Musculoskeletal: No joint pain, No swelling Genitourinary - Male: No hematuria, No dysuria Neurologic: No numbness/tingling Psychiatric: No depression symptoms Endocrine: No fatigue Integumentary: No rash, No itch Physical Exam: General Appearance: WD/WN, no apparent distress Eyes: PERRL, EOMI ENT: hearing grossly normal, pharynx normal Neck: supple, no JVD Respiratory/Chest: chest non-tender, lungs clear, no respiratory distress, no accessory muscle use Cardiovascular: regular rate, rhythm, no murmur Abdomen / GI: normal bowel sounds, non tender, soft Extremities: normal inspection, no calf tenderness, no pedal edema Neurologic/Psychiatric: alert, normal reflexes, oriented x 3 Skin: normal color, warm/dry (Filipowicz,Barbara G., PA-C) Hospital Course History of Present Illness Source: patient, family 76-year-old male with past medical history of coronary artery disease status post stent placement currently on Brilinta and aspirin, hyperlipidemia, hypertension, status post colonic resection 5 years ago for diverticulitis present to the ER with complaints of abdominal pain which started a few hours prior to arrival. The pain is in the upper to mid abdominal area with radiation to the back, stabbing in nature, 8/10 in severity. Denies any nausea, vomiting, diarrhea or fevers and chills. Denies any chest pain or shortness of breath or palpitations. Denies any dysuria but had increased frequency starting yesterday. General Appearance: WD/WN, no apparent distress Eyes: normal inspection ENT: + pertinent finding (NG tube in place) Neck: supple Respiratory/Chest: lungs clear, normal breath sounds, no respiratory distress Cardiovascular: regular rate, rhythm Abdomen/GI: non tender, + distended Extremities/Musculoskelatal: no calf tenderness, no pedal edema Neurologic/Psych: alert, normal mood/affect, oriented x 3 Skin: normal color Hospital Course: 76 yo M with PMHx of CAD s/p triple stent placement currently on Brilinta and aspirin, hyperlipidemia, hypertension, status post colonic resection 5 years ago for diverticulitis presented to the ER with complaints of abdominal pain which started a few hours prior to arrival. Partial Small bowel obstruction: - Etiology from adhesions s/p partial colon resection for diverticulitis - Gen surg on board- advanced diet as tolerated - NG tube to LIS placed at time of admission was removed on 03/11 with low yield outs= 70mL. - Repeat KUB showed no SBO, improved. - Supportive care, maintenance fluids with NSS at 100mL/hr off now as tolerating diet CAD with triple vessel disease s/p BRUCE placement Hyperlipidemia - Initially Mar 2015 had worsening angina- Apr 2015 had 2 BRUCE to mid and distal RCA at [facility]. Had in-stent restenosis in mid and proximal RCA in Jul 2015. In January 2016 had 5th sent placed in the mid RCA, at this time he also had noted moderate-severe disease in the LAD and ramus. - Follows with Dr. Blum as an outpatient and has f/u next month. - Lesion on RLE from hitting his leg against a step. Pt did not fall - not at risk for falling. He typically exercises 3-4x per week at least with treadmill , eliptical, and weight machines. - Cont aspirin 81 mg and Brilinta 90 mg BID - Continue lipitor 80 mg QHS Hypertension: - Continue lisinopril 10 mg QPM DVT prophylaxis: SCDs CODE STATUS: DO NOT RESUSCITATE Disposition: from home, discharge home today Total Time Spent: Greater than 30 minutes This includes examination of the patient, discharge planning, medication reconciliation, and communication with other providers. (Barbara Hernandez PA-C) PA Physician Supervision Note: I interviewed and examined the patient. Discussed with Barbara Hernandez PAC and agree with findings and plan as documented in the note. Any exceptions or clarifications are listed here: None Patient here with partial bowel obstruction, I visited him after eating lunch, he was evaluated by the surgeon Dr. Lal, he was felt safe to go home. Vitals are stable abdomen was soft nontender Results partial small bowel obstruction will follow-up with outpatient providers Documented By: Edison Keenan (Edison Keenan M.D.) Discharge Instructions Please refer to the electronic Patient Visit Report (Discharge Instructions) for additional information. (Barbara Hernandez PA-C) Follow-Up Follow up with your Primary Care Provider within 1 week. (Barbara Hernandez PA-C) Additional Copies To Jack Montalvo D.O.
[2017-03-12 11:44] VITALS: BP 136/82; PULSE 47; TEMP 36.6; O2SAT 96
[2017-03-12] MEDS ORDERED: ATORVASTATIN 40 MG TAB PO SCH (21:00)
== END 2017-03-12 12:45 | disposition home or self-care (01) | DRG 390 ==
LOC: C.EDB 19:05 → C.3E 03-11 00:51 → ENRESERV 03-11 01:00
PROVIDERS: ADMIT Family Medicine; ATTEND Hospitalist
DX: K56.5 Intestinal adhesions [bands] with obstruction (postinfection) (principal); I25.10 Atherosclerotic heart disease of native coronary artery without angina pectoris; Z95.5 Presence of coronary angioplasty implant and graft; I11.9 Hypertensive heart disease without heart failure; E78.5 Hyperlipidemia, unspecified; Z79.899 Other long term (current) drug therapy; Z79.82 Long term (current) use of aspirin; Z66 Do not resuscitate; Z98.890 Other specified postprocedural states; Z87.19 Personal history of other diseases of the digestive system; Z87.891 Personal history of nicotine dependence